=== PATIENT | female | born 1960 | race Caucasian/White ===

== ENCOUNTER 2022-02-24 14:14 | Outpatient (CLI) | payer BC | END 2022-02-24 14:15 | disposition home or self-care (01) | LOC: CSHULT 14:14 | PROVIDERS: ATTEND Nurse Practitioner Family | DX: R22.41 Localized swelling, mass and lump, right lower limb (principal) | CPT/HCPCS: 76999 ==

== ENCOUNTER 2023-05-06 14:45 | Outpatient (CLI) | payer BC ==
[~2023-05-06 14:45] MED LIST: Magnevist 469MG/ML 20 ML VIAL ONE
== END 2023-05-06 14:46 | disposition home or self-care (01) ==
LOC: CSHMRI 14:45
PROVIDERS: ATTEND Psychiatry & Neurology Neurology
DX: R51.9 Headache, unspecified (principal)
CPT/HCPCS: 70553